=== PATIENT | male | born 1930 | race Caucasian/White ===

== ENCOUNTER 2016-09-07 00:20 | Inpatient (IN) | payer MEDICARE, BC ==
[~2016-09-07] VITALS: Ht 177.8 cm; Wt 90.9 kg
--- NOTE | 2016-09-07 00:25 | NUR ---
pt bib RA, states pt was getting breathing treatment at home, states another breathing treatment given on route in ambulance, paramedics stated pt with diminished breath sounds, breathing with excessory muscles , with faint wheezes. pt is alert, oriented x 4, pt able to make needs known, pt has caregiver at bedside... pt unable to ambulate due to a fall back in Jun, has fracture to right knee, has healing wound on lower right leg for which pt is receiving treatment at wound center (09/06/16 last seen). Both lower extremities are reddened by cellulitis, as well as edematous, showing pitting plus 1-2.... md at bedside...
[2016-09-07] MEDS ORDERED: IPRA3AMP NEB (00:27)
[2016-09-07] MEDS ORDERED: APIX5TAB PO (00:28)
[2016-09-07] MEDS ORDERED: ATOR10TA PO (00:29)
[2016-09-07] MEDS ORDERED: VANCOMYCIN IV 1,000 MG in IV DEXTROSE 5% 250 ML IV ONE (00:30)
[2016-09-07] MEDS ORDERED: BUDE0.5A4 NEB (00:30)
[2016-09-07] MEDS ORDERED: CALC-555 PO (00:31)
[2016-09-07] MEDS ORDERED: CHOL10005 PO (00:34)
[2016-09-07] MEDS ORDERED: POTA10TA10 PO (00:35)
[2016-09-07] MEDS ORDERED: FURO20TA4 PO (00:35)
[2016-09-07] MEDS ORDERED: LEVO500T90 PO (00:37)
[2016-09-07] MEDS ORDERED: LEVO112T5 PO (00:44)
[2016-09-07] MEDS ORDERED: LORA1TAB PO (00:45)
[2016-09-07] MEDS ORDERED: LOSA25TA13 PO (00:46)
[2016-09-07] MEDS ORDERED: METO-302 PO (00:47)
[2016-09-07] MEDS ORDERED: VANCOMYCIN IV 200 ML ONE (00:55)
[2016-09-07 01:10] LABS: BASOPHILS % (AUTO) 0.3 % (0.0-2.0); EOSINOPHILS # (AUTO) 0.1 K/uL (0.0-0.7); EOSINOPHILS % (AUTO) 0.5 % (0.0-7.0); HEMATOCRIT 37.1 % (36.7-47.1); HEMOGLOBIN 12.5 g/dL (12.5-16.3); LYMPHOCYTES # (AUTO) 0.5 K/uL (20.0-40.0); LYMPHOCYTES % (AUTO) 3.8 % (20.5-51.5); MEAN CORPUSCULAR HEMOGLOBIN 28.8 uug (23.8-33.4); MEAN CORPUSCULAR HGB CONC 34 g/dL (32.5-36.3); MEAN CORPUSCULAR VOLUME 85.6 fL (73.0-96.2); MONOCYTES # (AUTO) 0.6 K/uL (2.0-10.0); MONOCYTES % (AUTO) 4.7 % (0.0-11.0); NEUTROPHILS # (AUTO) 11.9 K/uL (1.8-8.9); NEUTROPHILS % (AUTO) 90.7 % (38.5-71.5); PLATELET COUNT (AUTO) 156 K/uL (152-348); RED BLOOD CELL COUNT(AUTO) 4.33 MIL/uL (4.06-5.63); RED CELL DISTRIBUTION WIDTH 16.2 % (12.1-16.2); WHITE BLOOD COUNT (AUTO) 13.1 K/uL (3.6-10.2)
[2016-09-07 01:13] LABS: CALCIUM 9.3 mg/dL (8.5-10.1); CREATININE 0.9 mg/dL (0.6-1.3); POTASSIUM 3.4 mmol/L (3.5-5.1)
[2016-09-07 01:20] LABS: TROPONIN I 0.023 ng/mL (0.00-0.056)
[2016-09-07 01:22] LABS: LACTIC ACID 2.3 mmol/L (0.4-2.0)
[2016-09-07 01:25] LABS: ALBUMIN 3.5 g/dL (3.4-5.0); BILIRUBIN,DIRECT 0.5 mg/dL (0.0-0.2); BILIRUBIN,TOTAL 1.1 mg/dL (0.2-1.0)
[2016-09-07] MEDS ORDERED: IV NORMAL SALINE 1000 ML BAG IV ONE (01:30)
[2016-09-07] MEDS ORDERED: PIPERACILLIN SODIUM/TAZOBACTAM 3.375 G in IV DEXTROSE 5% 50 ML IV ONE (02:45)
[2016-09-07 03:06] LABS: *BILIRUBIN,URIN NEGATIVE (NEGATIVE); *BLOOD, URINE 2+ (NEGATIVE); *CLARITY,URINE SLIGHTLY CLOUDY (CLEAR); *COLOR,URINE YELLOW (YELLOW); *KETONES,URINE NEGATIVE (NEGATIVE); *PROTEIN,URINE NEGATIVE (NEGATIVE); *UROBILINOGEN,URINE 0.2 E.U./dl (NORMAL); LEUKOCYTE ESTERASE ,URINE 2+ (NEGATIVE); NITRITE, URINE NEGATIVE (NEGATIVE); PH,URINE 6.5 (5.0-8.0); UGLUCOSE NEGATIVE (NEGATIVE)
[2016-09-07 03:10] LABS: BACTERIA,URINE MODERATE /HPF (NONE SEEN); RBC,URINE 20-50 /HPF (0-3); SQUAMOUS EPITHELIAL CELL,UR FEW /HPF (NONE SEEN); WBC,URINE TNTC /HPF (0-3)
[2016-09-07] MEDS ORDERED: LEVOFLOXACIN 750 MG/D5W 150 ML PIGGYBACK IV ONE (03:30)
--- NOTE | 2016-09-07 03:32 | NUR ---
CODE SEPSIS OVERHEAD CALLED. FLUIDS/ANTIBIOTIC GIVEN.
--- NOTE | 2016-09-07 04:00 | NUR ---
fluids being given slow due to hx of CHF...
[2016-09-07] MEDS ORDERED: PIPERACILLIN/TAZOBACTAM/D5W 50 ML IV ONE (04:08)
[2016-09-07] MEDS ORDERED: LEVOFLOXACIN 750MG/D5W 150 ML IV ONE (04:08)
[2016-09-07] MEDS ORDERED: ACETAMINOPHEN 325 MG TABLET PO PRN (05:30)
[2016-09-07] MEDS ORDERED: VANCOMYCIN IV 200 ML IV ONE (05:30)
[2016-09-07] MEDS ORDERED: IV NS 1000 ML 1,000 ML IV PRN (05:30)
--- NOTE | 2016-09-07 05:50 | NUR ---
Pt. admitted to telemetry , under care of Dr. Bhat, Belongs List completed, pt alert, oriented x 4, no resp distress noted or reported upon transfer assessment... pt transferred via gurney... caregiver at side...
[2016-09-07 06:07] LABS: ABG BASE EXCESS 5.2 mmol/L; ABG HCO3 28.7 mmol/L; ABG PCO2 38.2 mmHg (35.0-45.0); ABG PH 7.494 (7.350-7.450); ABG SITE RIGHT RADIAL; ABG TOTAL HEMOGLOBIN 11.8 G/dL (13.5-18.0); COHb 1.4 % (0.5-1.5); MetHb 0.3 % (0.0-1.5); O2Hb 91.8 % (94.0-97.0); VENT MODE Nasal Cannula
--- NOTE | 2016-09-07 07:11 | NUR ---
received pt from er, alert, oriented, forgetful, denies any pain ,dry coughing, with iv bolus infusing from er to finish all bags sent total of 2 liters bolus.blood draw for labs and abg obtained, pictures of skin taken, placed on oxygen 4 liters saturating 94% bp 131/63 hr 77 temp 98.6 spo2 94% afib on monitor.voided in the urinal 250cc. private caregiver at bedside.
[2016-09-07] MEDS ORDERED: methylPREDNISolone SOD SUCC 40 MG/ML VIAL IV SCH (07:30)
[2016-09-07] MEDS ORDERED: ALBUTEROL SULFATE 2.5 MG/3 ML NEBU NEB SCH (07:35)
--- NOTE | 2016-09-07 07:58 | NUR ---
PT WAS ADMITTED TO TELE FLOOR DURING NON DESTRUCTIVE EVALUATION SPECIALIST. ALERTCarlos MARTINEZ ORIENTED IN NO ACUTE DISTRESS. ADMITTED TO COMPUTER AND DR CURTIS IN ROOM WITH PT CAREGIVERS AND FAMILY. CALL LIGHT IN REACH, WILL CONTINUE TO MONITOR
[2016-09-07] MEDS: CALCIUM CARB/VITAMIN D 500MG-200UNITS TABLET PO SCH (08:24)
[2016-09-07] MEDS: LOSARTAN POTASSIUM 25 MG TABLET PO SCH (08:24)
[2016-09-07] MEDS: LEVOTHYROXINE SODIUM 112 MCG TABLET PO SCH (08:25)
[2016-09-07] MEDS: PANTOPRAZOLE SODIUM 40 MG TABLET.DR PO SCH (08:26)
[2016-09-07] MEDS: CHOLECALCIFEROL 1,000 UNIT TABLET PO SCH (08:26)
[2016-09-07] MEDS: GUAIFENESIN LA 600 MG TABLET.SA PO SCH ×3 (08:29→20:03)
[2016-09-07] MEDS: METOPROLOL SUCCINATE XL 25 MG TAB.SR.24H PO SCH (08:30)
[2016-09-07] MEDS: IPRATROPIUM BROMIDE 0.5 MG/2.5 ML NEBU NEB SCH ×3 (08:36→19:52)
[2016-09-07] MEDS: BUDESONIDE 0.5 MG/2 ML NEBU NEB SCH ×2 (08:37→19:52)
[2016-09-07] MEDS: ALBUTEROL SULFATE 2.5 MG/ 0.5 ML NEBU NEB SCH ×3 (08:37→19:52)
[2016-09-07] MEDS ORDERED: methylPREDNISolone SOD SUCC 125 MG/2 ML VIAL IV SCH (09:00)
[2016-09-07] MEDS ORDERED: Medication Not On Formulary EA (Cholecalciferol (Vitamin D3) (Vitamin D CAPSULE) 1,000 U PO SCH (09:00)
[2016-09-07 09:40] VITALS: BP 137/75
--- NOTE | 2016-09-07 10:03 | NUR ---
PT STATING THAT PT DO NOT WANT MUCINEX AT THIS TIME, STATED WILL TAKE IN A LITTLE BIT
[2016-09-07] MEDS: POTASSIUM CHLORIDE 50 ML IV SCH ×2 (10:32→11:57)
[2016-09-07 11:43] VITALS: BP 133/71
--- NOTE | 2016-09-07 12:00 | NUR ---
Clinical Pharmacy Note: Vancomycin Dosing per Pharmacy Subjective: Vancomycin IV to start on this 86 yo male patient for suspected infection (waiting for MD note). Patient received vancomycin 1gm IVPB x1 dose in ED on 09/07 at 0100 Objective: BUN 13/Scr 0.9 WBC 13.3 Temperature 98.1 Assessment/Plan: Will start vancomycin 1500mg IVPB Q19hr for a predicted vancomycin steady state trough level of 15.6 mcg/ml. First dose is due today at 1700. Will draw a vancomycin trough level prior to the 4th dose of vancomycin (not ordered yet). Will monitor renal function and adjust vancomycin dose, if needed, should renal function change significantly. Will follow daily.
[2016-09-07] MEDS: PIPERACILLIN/TAZOBACTAM/D5W 3.375 G in PREMIXED 1 EACH IV SCH ×2 (14:00→22:23)
[2016-09-07 16:00] VITALS: BP 124/65
[2016-09-07] MEDS ORDERED: APIXABAN 5 MG TABLET PO SCH (17:00)
[2016-09-07] MEDS ORDERED: VANCOMYCIN IV 1,500 MG in IV DEXTROSE 5% 500 ML IV SCH (17:00)
[2016-09-07] MEDS ORDERED: Z GUARD REMEDY PASTE 57 GM TUBE TOP PRN (17:15)
[2016-09-07 18:48] LABS: FREE T4 (FREE THYROXINE) 1.14 ng/dL (0.76-1.46)
--- NOTE | 2016-09-07 19:20 | NUR ---
Received report from MAXIMO nurse.
--- NOTE | 2016-09-07 19:50 | NUR ---
Awake when received. Denies any pain/discomforts at this time. Caregiver at bedside. Safety measure and fall precaution maintained. Continue care as planned.
[2016-09-07] MEDS: ATORVASTATIN 10 MG TABLET PO SCH (20:03)
[2016-09-07] MEDS: LORAZEPAM 1 MG TABLET PO SCH (20:03)
[2016-09-07] MEDS: TAMSULOSIN HCL 0.4 MG CAP.SR.24H PO SCH (20:03)
--- NOTE | 2016-09-07 20:10 | NUR ---
Receiving breathing treatment at this time. RT at bedside. Pt tolerating procedure well.
[2016-09-07 20:21] VITALS: BP 116/60
--- NOTE | 2016-09-07 21:15 | NUR ---
Received BC result from the lab- Gram (-) bacilli. Will notify
--- NOTE | 2016-09-07 21:30 | NUR ---
Relayed BC result to DR Donato with no new order noted.
--- NOTE | 2016-09-08 | NUR ---
NPO order initiated. PT/PCG made aware.
[2016-09-08 00:26] VITALS: BP 110/67
[2016-09-08] MEDS: ALBUTEROL SULFATE 2.5 MG/ 0.5 ML NEBU NEB SCH ×4 (01:30→19:02)
[2016-09-08] MEDS: IPRATROPIUM BROMIDE 0.5 MG/2.5 ML NEBU NEB SCH ×4 (01:30→19:02)
--- NOTE | 2016-09-08 02:01 | NUR ---
Pt asleep. No sob noted. HHN tx not given. RN Paul notified.
[2016-09-08 04:00] VITALS: BP 128/71
[2016-09-08] MEDS: PIPERACILLIN/TAZOBACTAM/D5W 3.375 G in PREMIXED 1 EACH IV SCH ×3 (05:23→21:00)
--- NOTE | 2016-09-08 05:27 | NUR ---
HR 48 bpm. VS taken 120/62 52, 20. asymptomatic. Denies any pain/discomforts at this time. Kept NPO as ordered.
--- NOTE | 2016-09-08 05:55 | NUR ---
Slept well. PCG remain at bedside. No complaint presented the whole night. Safety measure and fall precaution maintained. No s/s of adverse reaction noted from antibiotics. Breathing treatments ordered well tolerated. NPO maintained for thoracentesis left lung today as ordered. All needs attended and met. No significant event reported. Continue care as planned.
--- NOTE | 2016-09-08 06:35 | NUR ---
(R)FA IV leaking, re start a new site on right hand G# 22 x 1 attempt. PT tolerated procedure well.
[2016-09-08 06:53] LABS: BASOPHILS % (AUTO) 0.1 % (0.0-2.0); EOSINOPHILS # (AUTO) 0.1 K/uL (0.0-0.7); EOSINOPHILS % (AUTO) 0.7 % (0.0-7.0); HEMATOCRIT 30.6 % (36.7-47.1); HEMOGLOBIN 10.2 g/dL (12.5-16.3); LYMPHOCYTES # (AUTO) 0.2 K/uL (20.0-40.0); LYMPHOCYTES % (AUTO) 2.1 % (20.5-51.5); MEAN CORPUSCULAR HEMOGLOBIN 28.6 uug (23.8-33.4); MEAN CORPUSCULAR HGB CONC 33 g/dL (32.5-36.3); MEAN CORPUSCULAR VOLUME 85.8 fL (73.0-96.2); MONOCYTES # (AUTO) 0.7 K/uL (2.0-10.0); MONOCYTES % (AUTO) 6.4 % (0.0-11.0); NEUTROPHILS # (AUTO) 9.5 K/uL (1.8-8.9); NEUTROPHILS % (AUTO) 90.7 % (38.5-71.5); PLATELET COUNT (AUTO) 102 K/uL (152-348); RED BLOOD CELL COUNT(AUTO) 3.57 MIL/uL (4.06-5.63); RED CELL DISTRIBUTION WIDTH 15.8 % (12.1-16.2); WHITE BLOOD COUNT (AUTO) 10.5 K/uL (3.6-10.2)
[2016-09-08] MEDS: LEVOTHYROXINE SODIUM 112 MCG TABLET PO SCH (07:00)
[2016-09-08 07:14] LABS: ALBUMIN 2.5 g/dL (3.4-5.0); CALCIUM 8.3 mg/dL (8.5-10.1); CREATININE 0.9 mg/dL (0.6-1.3); MAGNESIUM 1.8 mg/dL (1.8-2.4); PHOSPHOROUS 3.1 mg/dL (2.5-4.9); POTASSIUM 3.3 mmol/L (3.5-5.1); TOTAL PROTEIN, SERUM 5.5 g/dL (6.4-8.2)
--- NOTE | 2016-09-08 07:16 | NUR ---
Report given to PAMELA Gayle.
[2016-09-08] MEDS: BUDESONIDE 0.5 MG/2 ML NEBU NEB SCH ×2 (07:34→19:01)
--- NOTE | 2016-09-08 08:03 | NUR ---
Awake, alert, oriented x4. On moderate high back rest, O2 at 4L/NC humidified with O2 sat of 95%. IVF infusing. Discussed plan of the day, for thoracentesis
[2016-09-08 08:08] LABS: BAND % (MANUAL) 24 % (0-10); LYMPHOCYTES % (MANUAL) 2 % (20-40); MONOCYTES % (MANUAL) 7 % (2-10); NEUTROPHILS % (MANUAL) 67 % (42-75)
[2016-09-08 08:09] LABS: ANISOCYTOSIS 1+; PLATELET ESTIMATE SLIGHT DECREASED
[2016-09-08] MEDS: CALCIUM CARB/VITAMIN D 500MG-200UNITS TABLET PO SCH (08:21)
[2016-09-08] MEDS: LOSARTAN POTASSIUM 25 MG TABLET PO SCH (08:21)
[2016-09-08] MEDS: GUAIFENESIN LA 600 MG TABLET.SA PO SCH ×2 (08:21→20:20)
[2016-09-08] MEDS: PANTOPRAZOLE SODIUM 40 MG TABLET.DR PO SCH (08:21)
[2016-09-08] MEDS: METOPROLOL SUCCINATE XL 25 MG TAB.SR.24H PO SCH (08:22)
[2016-09-08] MEDS: CHOLECALCIFEROL 1,000 UNIT TABLET PO SCH (08:22)
[2016-09-08] MEDS ORDERED: POTASSIUM CHLORIDE 20 MEQ TAB.PRT.SR PO ONE (10:00)
[2016-09-08 11:13] VITALS: BP 124/65
[2016-09-08] MEDS ORDERED: POTASSIUM CHLORIDE 20 MEQ in IV NS 1000 ML 1,000 ML IV PRN (11:15)
[2016-09-08] MEDS ORDERED: FUROSEMIDE 40 MG/4 ML VIAL IV ONE (11:15)
--- NOTE | 2016-09-08 11:30 | NUR ---
Noted generalized and scrotal edema +3. Dr. Donato informed with orders for Lasix IV given and K po given. IVF discontinued.
[2016-09-08 16:20] VITALS: BP 129/63
--- NOTE | 2016-09-08 16:30 | NUR ---
Ultrasound guided thoracentesis right ling done. Called Dr. Lowe for orders for specimen, sent to lab. Vital signs taken and recorded. Had BM, transferred max assist x 2 by caregiver and back to bed. Repositioned comfortably in bed. O2 titrated to 3L/NC With O2 sat of 97%
[2016-09-08 19:20] LABS: PROTEIN, BODY FLUID 2.4 G/DL
[2016-09-08] MEDS: TAMSULOSIN HCL 0.4 MG CAP.SR.24H PO SCH (20:19)
[2016-09-08] MEDS: LORAZEPAM 1 MG TABLET PO SCH (20:20)
[2016-09-08] MEDS: ATORVASTATIN 10 MG TABLET PO SCH (20:20)
[2016-09-08 20:49] VITALS: BP 141/67
--- NOTE | 2016-09-08 21:16 | NUR ---
PATIENT ALERT ORIENTED ABLE TO MAKE NEEDS KNOWN, NO SOB NO CHEST PAIN NOTED, RYTHM MULTIFOCAL PVC, NO COMPLAIN OF PAIN AT THIS TIME. CONT TO MONITOR.
[2016-09-08 23:55] VITALS: BP 143/79
[2016-09-09] MEDS: ALBUTEROL SULFATE 2.5 MG/ 0.5 ML NEBU NEB SCH ×4 (01:15→20:39)
[2016-09-09] MEDS: IPRATROPIUM BROMIDE 0.5 MG/2.5 ML NEBU NEB SCH ×4 (01:15→20:39)
--- NOTE | 2016-09-09 01:15 | NUR ---
Pt refused 1 o'clock Treatment when given first treatment at 1905. PAMELA Alexandra notified. No SOB noted. No Tx given.
[2016-09-09 04:00] VITALS: BP 140/75
[2016-09-09] MEDS: PIPERACILLIN/TAZOBACTAM/D5W 3.375 G in PREMIXED 1 EACH IV SCH ×3 (05:06→21:31)
--- NOTE | 2016-09-09 05:49 | NUR ---
PATIENT SLEPT MOST OF THE NIGHT, NO SOB NO CHEST PAIN NOTED.RYTHM AFIB, NO COMPLAIN OF PAIN, CONT ON 3LITER NC OXYGEN FOR ASSIST, OXYGEN 96%, NO ASE NOTED FROM ABX. CONT TO MONITOR. NO S/S OF DISTRESS.
--- NOTE | 2016-09-09 05:53 | NUR ---
PATIENT HAS EPISODES OF REFUSING BREATHING TREATMENT PER RT, NO SOB NO CHEST PAIN NOTED, RYTHM IS AFIB WITH PVC NORMAL ON PATIENT CONDITION, CONT TO MONITOR.
[2016-09-09] MEDS: LEVOTHYROXINE SODIUM 112 MCG TABLET PO SCH (06:21)
[2016-09-09 06:37] LABS: BASOPHILS % (AUTO) 0.2 % (0.0-2.0); EOSINOPHILS # (AUTO) 0.2 K/uL (0.0-0.7); EOSINOPHILS % (AUTO) 2.2 % (0.0-7.0); HEMATOCRIT 31.8 % (36.7-47.1); HEMOGLOBIN 10.7 g/dL (12.5-16.3); LYMPHOCYTES # (AUTO) 0.2 K/uL (20.0-40.0); LYMPHOCYTES % (AUTO) 2.1 % (20.5-51.5); MEAN CORPUSCULAR HGB CONC 34 g/dL (32.5-36.3); MEAN CORPUSCULAR VOLUME 86.5 fL (73.0-96.2); MONOCYTES # (AUTO) 0.9 K/uL (2.0-10.0); MONOCYTES % (AUTO) 9.4 % (0.0-11.0); NEUTROPHILS # (AUTO) 8.1 K/uL (1.8-8.9); NEUTROPHILS % (AUTO) 86.1 % (38.5-71.5); PLATELET COUNT (AUTO) 109 K/uL (152-348); RED BLOOD CELL COUNT(AUTO) 3.68 MIL/uL (4.06-5.63); RED CELL DISTRIBUTION WIDTH 16.1 % (12.1-16.2); WHITE BLOOD COUNT (AUTO) 9.4 K/uL (3.6-10.2)
[2016-09-09 06:46] LABS: CALCIUM 8.6 mg/dL (8.5-10.1); CREATININE 0.9 mg/dL (0.6-1.3); POTASSIUM 3.2 mmol/L (3.5-5.1)
[2016-09-09 07:21] LABS: BAND % (MANUAL) 20 % (0-10); EOSINOPHILS % (MANUAL) 2 % (0-8); LYMPHOCYTES % (MANUAL) 2 % (20-40); MONOCYTES % (MANUAL) 6 % (2-10); NEUTROPHILS % (MANUAL) 70 % (42-75)
[2016-09-09 07:22] LABS: ANISOCYTOSIS 1+; PLATELET ESTIMATE SLIGHT DECREASED
[2016-09-09] MEDS: BUDESONIDE 0.5 MG/2 ML NEBU NEB SCH ×2 (08:00→20:39)
[2016-09-09] MEDS: PANTOPRAZOLE SODIUM 40 MG TABLET.DR PO SCH (08:36)
[2016-09-09] MEDS: GUAIFENESIN LA 600 MG TABLET.SA PO SCH ×2 (08:37→21:29)
[2016-09-09] MEDS: CALCIUM CARB/VITAMIN D 500MG-200UNITS TABLET PO SCH (08:37)
[2016-09-09] MEDS: POTASSIUM CHLORIDE 10 MEQ CAPSULE.SA PO SCH (08:37)
[2016-09-09] MEDS: LOSARTAN POTASSIUM 25 MG TABLET PO SCH (08:38)
[2016-09-09] MEDS: METOPROLOL SUCCINATE XL 25 MG TAB.SR.24H PO SCH (08:39)
[2016-09-09] MEDS: CHOLECALCIFEROL 1,000 UNIT TABLET PO SCH (08:40)
[2016-09-09] MEDS ORDERED: FUROSEMIDE 40 MG TABLET PO SCH (09:00)
[2016-09-09] MEDS ORDERED: FUROSEMIDE 20 MG TABLET PO SCH (09:00)
[2016-09-09] MEDS ORDERED: COD LIVER OIL/ZINC OXIDE OINT 113 GM TUBE TOP PRN (10:00)
[2016-09-09] MEDS ORDERED: POTASSIUM CHLORIDE 20 MEQ TAB.PRT.SR PO ONE (10:00)
[2016-09-09 12:00] VITALS: BP 146/80
[2016-09-09] MEDS ORDERED: APIXABAN 5 MG TABLET PO ONE (13:15)
[2016-09-09 16:00] VITALS: BP 153/79
--- NOTE | 2016-09-09 16:06 | NUR ---
Discharge Plan: The patient will be discharged back home [[id number], [place] [address]] once medically cleared. He has 24-hour caregivers and has [facility] providing services per caregivers.
--- NOTE | 2016-09-09 18:40 | NUR ---
Patient have been in bed resting, no s/s of distress noted. Denied Pain during my shift. Caregiver at the bedside. Sacrum redness and skin tear noted, applied Desitin and covered my Mepilex. Photo taken and placed in chart. Iv leaking, new Iv was placed on forearm by PAMELA Paula. NS 0.5 L, O2 sat 93%. Eliquis was hold per Dr. Lowe progress notes. New condom catheter was placed. scuba diving teacher on place. Safety and comfort provided. Will continue monitoring.
[2016-09-09 19:00] VITALS: BP 139/73
--- NOTE | 2016-09-09 19:40 | NUR ---
PATIENT AND ALERT AND AWAKE ON BED WATCHING TV. NO SOB NOTED. USING O2 @ O.5 LPM VIA NC. ENGRAVER BLOCK AT THE BED SIDE. CONDOM F/C INTACT AND DRAINING YELLOW URINE. KEPT THE EXTREMITIES ELEVATED. WILL CONTINUE TO MONITOR
[2016-09-09] MEDS ORDERED: APIXABAN 5 MG TABLET PO SCH (21:00)
[2016-09-09] MEDS: ATORVASTATIN 10 MG TABLET PO SCH (21:28)
[2016-09-09] MEDS: LORAZEPAM 1 MG TABLET PO SCH (21:30)
[2016-09-09] MEDS: FUROSEMIDE 40 MG/4 ML VIAL IV SCH (21:30)
[2016-09-09] MEDS: TAMSULOSIN HCL 0.4 MG CAP.SR.24H PO SCH (21:30)
[2016-09-10 00:04] VITALS: BP 149/76
[2016-09-10] MEDS: ALBUTEROL SULFATE 2.5 MG/ 0.5 ML NEBU NEB SCH ×4 (00:51→19:37)
[2016-09-10] MEDS: IPRATROPIUM BROMIDE 0.5 MG/2.5 ML NEBU NEB SCH ×4 (00:51→19:37)
[2016-09-10 04:00] VITALS: BP 143/75
[2016-09-10] MEDS: PIPERACILLIN/TAZOBACTAM/D5W 3.375 G in PREMIXED 1 EACH IV SCH ×3 (05:35→21:05)
[2016-09-10] MEDS: LEVOTHYROXINE SODIUM 112 MCG TABLET PO SCH (05:58)
[2016-09-10 06:40] LABS: BASOPHILS # (AUTO) 0.1 K/uL (0.0-8.0); BASOPHILS % (AUTO) 1.3 % (0.0-2.0); EOSINOPHILS # (AUTO) 0.2 K/uL (0.0-0.7); EOSINOPHILS % (AUTO) 2.9 % (0.0-7.0); HEMATOCRIT 33.6 % (36.7-47.1); HEMOGLOBIN 11.2 g/dL (12.5-16.3); LYMPHOCYTES # (AUTO) 0.3 K/uL (20.0-40.0); LYMPHOCYTES % (AUTO) 4.5 % (20.5-51.5); MEAN CORPUSCULAR HEMOGLOBIN 28.8 uug (23.8-33.4); MEAN CORPUSCULAR HGB CONC 33 g/dL (32.5-36.3); MEAN CORPUSCULAR VOLUME 86.9 fL (73.0-96.2); MONOCYTES # (AUTO) 0.6 K/uL (2.0-10.0); MONOCYTES % (AUTO) 9.9 % (0.0-11.0); NEUTROPHILS # (AUTO) 5.2 K/uL (1.8-8.9); NEUTROPHILS % (AUTO) 81.4 % (38.5-71.5); PLATELET COUNT (AUTO) 119 K/uL (152-348); RED BLOOD CELL COUNT(AUTO) 3.87 MIL/uL (4.06-5.63); RED CELL DISTRIBUTION WIDTH 16.2 % (12.1-16.2); WHITE BLOOD COUNT (AUTO) 6.4 K/uL (3.6-10.2)
[2016-09-10 06:56] LABS: CALCIUM 8.3 mg/dL (8.5-10.1); CREATININE 0.9 mg/dL (0.6-1.3); POTASSIUM 3.4 mmol/L (3.5-5.1)
--- NOTE | 2016-09-10 07:04 | NUR ---
PATIENT IN STABLE CONDITION. PATIENT ON .5 LPM VIA NC. NO SOB. KEPT EXT ELEVATED. TAIL EDGER AT THE BED SIDE.
[2016-09-10] MEDS: BUDESONIDE 0.5 MG/2 ML NEBU NEB SCH ×2 (07:31→19:37)
[2016-09-10] MEDS: POTASSIUM CHLORIDE 10 MEQ CAPSULE.SA PO SCH (08:05)
[2016-09-10] MEDS: CHOLECALCIFEROL 1,000 UNIT TABLET PO SCH (08:07)
[2016-09-10] MEDS: GUAIFENESIN LA 600 MG TABLET.SA PO SCH ×2 (08:08→20:47)
[2016-09-10] MEDS: PANTOPRAZOLE SODIUM 40 MG TABLET.DR PO SCH (08:09)
[2016-09-10] MEDS: FUROSEMIDE 40 MG/4 ML VIAL IV SCH ×2 (08:11→20:42)
[2016-09-10] MEDS: LOSARTAN POTASSIUM 25 MG TABLET PO SCH (08:16)
[2016-09-10] MEDS: METOPROLOL SUCCINATE XL 25 MG TAB.SR.24H PO SCH (08:17)
[2016-09-10 08:29] LABS: BAND % (MANUAL) 9 % (0-10); BASOPHILS % (MANUAL) 1 % (0-2); EOSINOPHILS % (MANUAL) 2 % (0-8); LYMPHOCYTES % (MANUAL) 6 % (20-40); MONOCYTES % (MANUAL) 9 % (2-10); NEUTROPHILS % (MANUAL) 73 % (42-75)
[2016-09-10 08:33] LABS: ANISOCYTOSIS 1+; TARGET CELLS FEW
[2016-09-10 08:34] LABS: OVALOCYTES FEW
[2016-09-10 08:36] LABS: PLATELET ESTIMATE SLIGHT DECREASED
[2016-09-10] MEDS ORDERED: ELIQUIS 5 MG PO SCH (09:00)
[2016-09-10] MEDS: CALCIUM CARB/VITAMIN D 500MG-200UNITS TABLET PO SCH (09:10)
[2016-09-10 12:14] VITALS: BP 119/63
[2016-09-10] MEDS ORDERED: POTASSIUM CHLORIDE 50 ML IV SCH (12:45)
[2016-09-10] MEDS: POTASSIUM CHLORIDE 20 MEQ TAB.PRT.SR PO SCH (14:10)
[2016-09-10] MEDS: APIXABAN 5 MG TABLET PO SCH (16:26)
--- NOTE | 2016-09-10 16:31 | NUR ---
ELIQUIS WILL BE CONTINUE PER DR. CURTIS ORDERS. PATIENT MEDICATION WAS GIVEN TO PHARMACY. PATIENT HAVE BEEN STABLE DURING MY DAY, URINATING WELL. NO S/S OF DISTRESS NOTED DURING MY SHIFT, DENIED ANY PAIN. WILL CONTINUE MONITORING.
[2016-09-10 19:00] VITALS: BP 133/72
--- NOTE | 2016-09-10 19:00 | NUR ---
PATIENT IN BED WITH THE COMPANY OF HIS CAREGIVERS. NO S/S OF DISTRESS DURING MY SHIFT. DENIED PAIN. F/C INTACT, DRAINING WELL. ALL TREATMENTS AND ORDERS WERE PROVIDED. SAFETY AND COMFORT PROVIDED BY STAFF. REPORT WILL BE GIVEN TO PM RN.
[2016-09-10] MEDS: LORAZEPAM 1 MG TABLET PO SCH (20:43)
[2016-09-10] MEDS: ATORVASTATIN 10 MG TABLET PO SCH (20:43)
[2016-09-10] MEDS: TAMSULOSIN HCL 0.4 MG CAP.SR.24H PO SCH (20:43)
[2016-09-11] MEDS: IPRATROPIUM BROMIDE 0.5 MG/2.5 ML NEBU NEB SCH ×3 (00:34→13:45)
[2016-09-11] MEDS: ALBUTEROL SULFATE 2.5 MG/ 0.5 ML NEBU NEB SCH ×3 (00:35→13:45)
[2016-09-11 04:00] VITALS: BP 145/71
[2016-09-11] MEDS: PIPERACILLIN/TAZOBACTAM/D5W 3.375 G in PREMIXED 1 EACH IV SCH ×3 (05:03→17:23)
--- NOTE | 2016-09-11 06:00 | NUR ---
Patient slept well, in no acute distress. Cueto cath patent, draining clear, yellow urine. Zosyn administered as ordered, no s/s of adverse reaction noted. Repositioned for comfort. Call light within reach, bed alarm on, caregiver at bedside. Will continue to monitor.
[2016-09-11 06:17] LABS: CALCIUM 8.2 mg/dL (8.5-10.1); CREATININE 0.8 mg/dL (0.6-1.3); POTASSIUM 3.1 mmol/L (3.5-5.1)
[2016-09-11] MEDS: LEVOTHYROXINE SODIUM 112 MCG TABLET PO SCH (06:29)
[2016-09-11] MEDS: BUDESONIDE 0.5 MG/2 ML NEBU NEB SCH (07:48)
[2016-09-11] MEDS: FUROSEMIDE 40 MG/4 ML VIAL IV SCH (09:57)
[2016-09-11] MEDS: PANTOPRAZOLE SODIUM 40 MG TABLET.DR PO SCH (09:57)
[2016-09-11] MEDS: LOSARTAN POTASSIUM 25 MG TABLET PO SCH (09:57)
[2016-09-11] MEDS: CALCIUM CARB/VITAMIN D 500MG-200UNITS TABLET PO SCH (09:57)
[2016-09-11] MEDS: POTASSIUM CHLORIDE 20 MEQ TAB.PRT.SR PO SCH (09:57)
[2016-09-11] MEDS: METOPROLOL SUCCINATE XL 25 MG TAB.SR.24H PO SCH (09:58)
[2016-09-11] MEDS: CHOLECALCIFEROL 1,000 UNIT TABLET PO SCH (09:58)
[2016-09-11] MEDS: GUAIFENESIN LA 600 MG TABLET.SA PO SCH (09:59)
[2016-09-11] MEDS: APIXABAN 5 MG TABLET PO SCH ×2 (10:00→17:23)
[2016-09-11] MEDS ORDERED: PIPERACILLIN/TAZOBACTAM/D5W 3.375 G in PREMIXED 1 EACH IV SCH (11:00)
[2016-09-11 12:00] VITALS: BP 128/66
[2016-09-11] MEDS ORDERED: POTASSIUM CHLORIDE 20 MEQ TAB.PRT.SR PO ONE ×2 (12:30→14:30)
--- NOTE | 2016-09-11 14:06 | NUR ---
The patient will be discharged today back home [[id number], [place] [address]] [address] Donato. He will need to continue with his IV antibiotics and it was ordered through [facility] [ ; [phone]]. Spoke to Amilcar from [facility] who stated that they have spoken to the patient's family and they have agreed to pay the co-pay of $128.00. The antibiotics will be delivered tomorrow morning. Mikhail was provided with the information of the [email or web address] company that has an open episode with the patient, [employer] [ ; ; ]. Also spoke with Breezy from [employer] and she confirmed that they will continue with their care and was provided with [facility]'s contact numbers. His RN, Juliana, is aware of his discharged plan. His caregivers will be transporting him via private car.
[2016-09-11 15:54] VITALS: BP 119/67
--- NOTE | 2016-09-11 18:42 | NUR ---
DISCHARGE NOTE: PT EXPERIENCES NO S/S OF RESPIRATORY DISTRESS. PT'S O2 SAT IS 95% ON RA. NO PAIN REPORTED. WOUND CARE IS DONE, PRESCRIPTION IS GIVEN TO THE PT. EDUCATION IS PROVIDED. IV INTACT/PATENT TO RECEIVE IV HOME MEDS. PHARMACIST PROVIDED EDUCATION ON THE PRESCRIPTION. TEACHER TUTOR TOOK THE PT TO THE CAR. WOUND PICTURES ARE TAKEN.
== END 2016-09-11 18:30 | disposition home health service (06) | DRG 193 ==
LOC: ER 00:28 → TELE 05:20 → MED 09-10 15:20
PROVIDERS: ADMIT Internal Medicine; ATTEND Family Medicine
PROC: 0W993ZX Drainage of Right Pleural Cavity, Percutaneous Approach, Diagnostic (ICD-10-PCS; principal; 2016-09-08)
DX: J15.9 Unspecified bacterial pneumonia (principal); J96.01 Acute respiratory failure with hypoxia; L03.115 Cellulitis of right lower limb; J90 Pleural effusion, not elsewhere classified; N39.0 Urinary tract infection, site not specified; D68.59 Other primary thrombophilia; E87.2 Acidosis; J98.11 Atelectasis; E87.1 Hypo-osmolality and hyponatremia; E03.9 Hypothyroidism, unspecified; E87.6 Hypokalemia; E11.9 Type 2 diabetes mellitus without complications; I73.9 Peripheral vascular disease, unspecified; J44.9 Chronic obstructive pulmonary disease, unspecified; I48.2 Chronic atrial fibrillation; Z85.46 Personal history of malignant neoplasm of prostate; R32 Unspecified urinary incontinence; G14 Postpolio syndrome; Z85.51 Personal history of malignant neoplasm of bladder; I10 Essential (primary) hypertension; J45.909 Unspecified asthma, uncomplicated; E78.5 Hyperlipidemia, unspecified; S72.91XS Unspecified fracture of right femur, sequela; X58.XXXS Exposure to other specified factors, sequela; Z74.09 Other reduced mobility; Z80.1 Family history of malignant neoplasm of trachea, bronchus and lung; Z92.3 Personal history of irradiation; Z92.21 Personal history of antineoplastic chemotherapy; Z99.3 Dependence on wheelchair; Z79.01 Long term (current) use of anticoagulants; N50.89 Other specified disorders of the male genital organs; B96.5 Pseudomonas (aeruginosa) (mallei) (pseudomallei) as the cause of diseases classified elsewhere; Z87.891 Personal history of nicotine dependence; I87.8 Other specified disorders of veins; R60.1 Generalized edema; I27.2 Other secondary pulmonary hypertension; Z79.899 Other long term (current) drug therapy; Z87.01 Personal history of pneumonia (recurrent)
CPT/HCPCS: 32555; 36415; 36600; 70030-TC; 71010; 73590; 83605; 83615; 83735; 84100; 84155; 84443; 85025; 85730; 87040; 87070; 87077; 87086; 87205; 93005; 93307; 94640; 94664; A4217; A4663; J1940; J1956; J2543; J2920; J3370; J3480; J3590; J7030; J7040; J7050; J7060